=== PATIENT | female | born 2000 | race African-American/Black ===

== ENCOUNTER 2024-01-18 12:52 | Emergency (ER) | payer BC, OTHER ==
[~2024-01-18] VITALS: Ht 167.6 cm; Wt 110.2 kg
[2024-01-18 13:56] LABS: Basophils # (auto) 0.1 10 ^3/uL (0-0.2); Basophils % (auto) 0.7 % (0.0-2.0); Eosinophils # (auto) 0.1 10 ^3/uL (0-0.8); Eosinophils % (auto) 1.7 % (0.0-7.0); Hematocrit 43.2 % (36.0-46.0); Hemoglobin 13.9 g/dL (12.2-16.2); Lymphocytes # (auto) 3.5 10 ^3/uL (0.4-5.4); Lymphocytes % (auto) 45.3 % (10.0-50.0); Mean Corpuscular Hemoglobin 27.1 pg (28.0-32.0); Mean Corpuscular Hgb Conc. 32.2 g/dL (32.0-36.0); Mean Corpuscular Volume 84.2 fL (80.0-100.0); Monocytes # (auto) 0.7 10 ^3/uL (0-1.3); Monocytes % (auto) 8.7 % (0.0-12.0); Neutrophils # (auto) 3.4 10 ^3/uL (1.6-8.6); Neutrophils % (auto) 43.6 % (37.0-80.0); Red Blood Cells 5.13 10^6/uL (4.0-5.20); Red Cell Distribution Width 15.5 % (11.8-14.3); White Blood Cell 7.7 10^3/uL (4.4-10.8)
[2024-01-18 14:16] LABS: Alanine Aminotransferase 24 U/L (7-40); Albumin 4.4 g/dL (3.2-4.8); Alkaline Phosphatase 115 U/L (46-116); Anion Gap 4 (5-15); Aspartate Aminotransferase 15 U/L (13-40); Calcium 9.6 mg/dL (8.7-10.4); Carbon Dioxide 26 mmol/L (20-30); Chloride 109 mmol/L (98-107); Glucose 107 mg/dL (74-106); Lipase 31 U/L (12-53); Potassium 3.6 mmol/L (3.5-5.1); Sodium 139 mmol/L (136-145)
[2024-01-18 14:17] LABS: Bilirubin, Total 0.4 mg/dL (0.2-1.0); Total Protein 7.3 g/dL (5.7-8.2)
[2024-01-18 14:27] LABS: Blood Urea Nitrogen < 5 mg/dL (9-23)
[2024-01-18] MEDS: HYDROcodone-ACET 5/325MG TAB PO ONE (14:46)
[2024-01-18 16:15] LABS: Urine Bacteria None Seen /hpf (None Seen)
[2024-01-18 16:44] LABS: Urine Blood 3+ /uL (Negative); Urine Clarity Turbid (Clear); Urine Color Light-Brown (Yellow); Urine Protein, UAD 1+ (Negative); Urine Specific Gravity 1.022 (1.001-1.035); Urine Urobilinogen Normal (Negative); Urine WBC 17 /hpf (0 - 5)
[2024-01-18 17:49] VITALS: BP 137/79; PULSE 71; RESP 18; TEMP 97.2; O2SAT 100
[2024-01-18] MEDS ORDERED: IBUP-1455 PO (18:24)
[2024-01-18] MEDS ORDERED: NITR-87 PO (18:24)
[2024-01-18] MEDS ORDERED: ACET500T58 PO (18:24)
[2024-01-18] MEDS: NITROFURANTOIN 100 mg CAP PO ONE (19:10)
== END 2024-01-18 18:59 | disposition home or self-care (01) ==
LOC: ER 12:52
DX: N39.0 Urinary tract infection, site not specified (principal)
CPT/HCPCS: 36415; 74176; 80053; 81001; 81025; 83690; 85025

== ENCOUNTER 2025-07-12 16:35 | Emergency (ER) | payer BC, OTHER ==
[~2025-07-12] VITALS: Ht 167.6 cm; Wt 108.0 kg
[~2025-07-12 16:35] MED LIST: ACET500T58 PO; IBUP-1455 PO; NITR-87 PO
--- NOTE | 2025-07-12 17:46 | ED.PDOC ---
History of Present Illness EXP HPI Comments 25 year old female presents to the ED with a chief complaint of blood exposure onset today. 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 Immediately after patient went to rinse eye, was sent to ED by credit analysis manager. Patient states donor is a frequent donor, saw his blood work from January 2025, has no concerns. Patient currently has no discomfort to RT eye. No other symptoms or modifying factors present at this time. Denies fever chills Denies changes in vision blurred vision Denies headache dizziness Chief Complaint: Post Exposure Time Seen by MD: 17:40 Primary Care Provider: unknown Reviewed Notes: Medications, Allergies Allergies: Coded Allergies: No Known Drug Allergy (Verified Allergy, Unknown, 01/18/24) Home Meds Active Scripts Acetaminophen (Acetaminophen) 500 Mg Tab, 500 MG PO Q4HP PRN, #30 TAB Prov:MARK MENDOSA PAC 01/18/24 Ibuprofen Micronized (Ibuprofen) 800 Mg Tab, 800 MG PO Q8HP PRN, #20 TAB Prov:MARK MENDOSA PAC 01/18/24 Nitrofurantoin Monohydrate Mac (Macrobid) 100 Mg Cap, 100 MG PO BID for 7 Days, #14 CAP Prov:MARK MENDOSA PAC 01/18/24 Information Source: Patient Mode of Arrival: Ambulatory Severity: Moderate Timing: Hours Duration: Since onset Prehospital treatment: None Location: Conjunctiva Exposed to: Blood Exposed by: Splash Treatment prior to arrival: Washing, Irrigation Source information: Unknown Patient information: Unknown Past Medical History PAST MEDICAL HISTORY: Denies Surgical History: Denies all surgeries CYTOMETRY TECHNOLOGIST History: No Pertinent CYTOMETRY TECHNOLOGIST History Family History Family History: Reviewed,noncontributory to illness, No family hx of Cancer, No family hx of DM, No family hx of Heart camacho, No family hx of HTN, No family hx ofKidney camacho, No family hx of Liver camacho, No family hx of Lung camacho, No family hx of Stroke Social History Smoker: Non-Smoker Alcohol: Denies ETOH Use Drugs: Denies Drug Use Lives In: Home All Other Systems: Reviewed and Negative (as per HPI) Physical Exam General Appearance: Normal HEENT: Normal ENT Inspection, Pharynx Normal, TMs Normal Neck: Full Range of Motion, Non-Tender, Normal, Normal Inspection Respiratory: Chest Non-Tender, Lungs Clear, No Accessory Muscle Use, No Respiratory Distress, Normal Breath Sounds Cardiovascular: No Edema, No JVD, No Murmur, No Gallop, Normal Peripheral Puls es, Regular Rate/Rhythm Breast Exam: Deferred Gastrointestinal: No Organomegaly, Non Tender, No Pulsatile Mass, Normal Bowel Sounds, Soft Genitalia: Deferred Pelvic: Deferred Rectal: Deferred Extremities: No calf tenderness, Normal capillary refill, Normal inspection, Normal range of motion, Non-tender, No pedal edema Musculoskeletal : Apperance: Normal Neurologic: Alert, disulfurizer tender II-XII nml as Tested, No Motor Deficits, Normal Affect, Normal Mood, No Sensory Deficits Cerebellar Function: Normal Reflexes: Normal Skin: Dry, Normal Color, Warm Lymphatic: No Adenopathy Was a procedure done? Was a procedure done?: No Differential Diagnosis (EXP) Differential Diagnosis: Needle stick exposure X-Ray, Labs, Meds, VS Vital Signs Date Time Temp Pulse Resp B/P (MAP) Pulse Ox O2 Delivery O2 Flow Rate FiO2 07/12/25 18:07 97.9 78 18 136/86 (103) 97 97.9 07/12/25 18:07 78 16 98 Room Air 07/12/25 16:37 97.3 96 18 130/90 98 97.3 Lab Test 07/12/25 17:54 Range/Units Hepatitis B Surface Antigen Negative Negative Hepatitis B Surface Antibody Positive H Negative Hepatitis C Antibody Negative Negative HIV (1&2) Antibody Negative Negative X-Ray, Labs, Meds, VS Comment 25 year old female presents to the ED with a chief complaint of blood exposure onset today. Patient arrives alert and oriented, ABC's intact, afebrile, vital signs stable, saturating well in room air Patient is stable for discharge at this time. External notes reviewed. Test results and diagnostic imaging interpreted. All diagnostic findings, discharge care, education and instructions provided Follow-up with PCP in 2 to 3 days Patient verbalized understanding and agreed to treatment plan Vital signs stable, afebrile, no acute distress noted Patient ambulatory with strong steady gait Advised to return precautions for any new or worsening symptoms, return to ER immediately for re-evaluation Patient is aware that the purpose of this visit was for an acute medical emergency requiring emergent stabilization. Chronic conditions, including malignancies have not been ruled out. Patient is instructed to follow up with PCP as directed and discharge instructions for continued care and workup. If unable to arrange follow-up, patient is to return to the emergency department for reassessment. Patient (parent or legal guardian if applicable) was given verbal and written discharge instructions and acknowledges understanding. Time of 1ST Reevaluation: 18:10 Reevaluation 1ST: Improved Patient Education/Counseling: Diagnosis, Treatment Family Education/Counseling: No Family Present Departure 1 Departure Time of Disposition: 17:36 Impression: Primary Impression: Exposure to blood Disposition: 01 HOME / SELF CARE / HOMELESS Condition: Stable Discharged With: Self Critical Care Note Critical Care Time?: No Stability Stability form required: No Heart Score Heart Score: Heart Score Response (Comments) Value History N/A 0 EKG N/A 0 Age N/A 0 Risk Factors N/A 0 Troponin N/A 0 Total 0 I personally scribed for LIZZ ORTEGA NP ([email or web address]) on 07/12/25 at 17:46. Electronically submitted by Noemí Mojica ([email or web address]). LIZZ ORTEGA NP Jul 12, 2025 17:46
[2025-07-12 18:07] VITALS: BP 136/86; PULSE 78; RESP 16; TEMP 97.9; O2SAT 98
[2025-07-13 10:27] LABS: Hepatitis B Surface Antigen Negative (Negative)
== END 2025-07-12 18:09 | disposition home or self-care (01) ==
LOC: ER 16:35
DX: Z77.21 Contact with and (suspected) exposure to potentially hazardous body fluids (principal); R06.02 Shortness of breath; Z57.8 Occupational exposure to other risk factors
CPT/HCPCS: 36415; 86703; 86706; 86803; 87340